=== PATIENT | male | born 1985 | race Two or more races ===

== ENCOUNTER 2024-11-13 10:17 | Emergency (ER) | payer MEDICAID, SELFPAY ==
[2024-11-13 10:18] VITALS: BMI 34.7
[2024-11-13 10:33] VITALS: BP 140/89; PULSE 89; RESP 18; TEMP 37.1; O2SAT 99
--- NOTE | 2024-11-13 10:36 | EDNOTE_ITS ---
<Statement entered by Jayda Gómez MD - 11/13/24 13:55> As co-signing physician, I was present and available for consult prn. I concur with the plan and care as documented by the midlevel provider. ED General RME/HPI General Chief complaint: Dental/Oral/Throat Stated complaint: SORE THROAT, FACIAL SWELLING X 2 DAYS Time Seen by Provider: 11/13/24 10:24 Arrival date/time: 11/13/24 10:17 39-year-old male presents emergency department today complains of dental pain and facial swelling. Patient reports pain when chewing patient worse with difficulty swallowing or breathing Limitations: no limitations Related Data Previous Rx's ?Medication ?Instructions ?Recorded apixaban 5 mg (74 tabs) tablets in 5 mg PO BID #74 tab s 10/02/23 a dose pack (Eliquis DVT-PE Treat 30D Start) doxycycline hyclate 100 mg capsule 100 mg PO QDAY #9 c aps 10/02/23 clindamycin HCl 300 mg capsule 300 mg PO TID 7 days #2 1 caps 11/13/24 ibuprofen 800 mg tablet 800 mg PO TID PRN pain #30 t abs 11/13/24 Allergies Allergy/AdvReac Type Severity Reaction Status Date / Time shrimp Allergy Severe Swelling Verified 11/13/24 10:21 of Lip/Tongue/Throat Review of Systems Review of Systems Systems Reviewed: All systems reviewed, normal except as documented Constitutional Constitutional: Reports system reviewed and no additional complaints, except as documented, Denies fever(s) and Denies headache(s) Eyes Eyes: Reports system reviewed and no additional complaints, except as documented and Denies blurry vision ENT Ears, Nose, Mouth, and Throat: Reports system reviewed and no additional complaints, except as documented, Reports dental pain, Reports facial pain, Denies headache(s), Denies nasal congestion and Denies nasal discharge Cardiovascular Cardiovascular: Reports system reviewed and no additional complaints, except as documented, Denies chest pain and Denies dyspnea Respiratory Respiratory: Reports system reviewed and no additional complaints, except as documented, Denies chest congestion, Denies cough and Denies dyspnea Gastrointestinal Gastrointestinal: Reports system reviewed and no additional complaints, except as documented and Denies abdominal pain Integumentary/Breasts Skin/Breast: Reports system reviewed and no additional complaints, except as documented and Denies rash Neurologic Neurologic: Reports system reviewed and no additional complaints, except as documented, Reports as per HPI and Denies headache(s) Past Medical History Past Medical History NEUROLOGIC: Negative Neurological Disorders CARDIAC: Negative Cardiac Disorders or Congestive Heart Failure RESPIRATORY: Negative Chronic Obstructive Pulmonary Disease (COPD) or Asthma GASTROINTESTINAL: Negative Gastrointestinal Disorders GENITOURINARY: Negative Genitourinary Disorders or Renal Disease MUSCULOSKELETAL: Negative Musculoskeletal Disorders ENDOCRINE: Negative Endocrine Disorders, Diabetes Mellitus Type 1 or Diabetes Mellitus Type 2 HEMATOLOGIC: Negative Blood Disorders PSYCHO/SOCIAL: Positive Recreational Drug Use OTHER HISTORY: Negative Autoimmune Disease, Down Syndrome, Developmental Delay, Shingles or Falls Social History SMOKING STATUS: Current every day smoker SECOND HAND EXPOSURE: No SUBSTANCE USE: does not use ED Exam General Limitations: Present no limitations General appearance: Present alert and in no apparent distress Head Head exam: Present atraumatic Eye Eye exam: Present normal appearance, PERRL and EOMI ENT ENT exam: Present normal exam, normal oropharynx and mucous membranes moist Neck Neck exam: Present normal inspection, full ROM and trachea midline Chest Chest inspection: Present normal inspection and symmetric chest wall rise Respiratory Respiratory exam: Present normal lung sounds bilaterally Cardiovascular Cardiovascular exam: Present regular rate, normal rhythm and normal heart sounds Abdominal Exam Abdominal exam: Present soft and normal bowel sounds Extremities Exam Extremities exam: Present normal inspection and full ROM Back Exam Back exam: Present normal inspection and full ROM Neurological Exam Neurological exam: Present alert, oriented X3 and CN II-XII intact Psychiatric Psychiatric exam: Present normal affect and normal mood Skin Skin exam: Present warm, dry, intact and normal color Course Quality Measures none Vital Signs Vital signs: Vital Signs Temperature 98.7 F 11/13/24 10:33 Pulse Rate 89 11/13/24 10:33 Respiratory Rate 18 11/13/24 10:33 Blood Pressure 140/89 H 11/13/24 10:33 Pulse Oximetry (%) 99 11/13/24 10:33 Oxygen Delivery Method Room Air 11/13/24 10:33 O2 saturation 99% r/a wnl [facility] Patient data External records reviewed:: [facility] previous records Clinical information provided by:: patient Social determinants that could affect healthcare access:: none Patient has the following chronic illnesses:: See history How is presenting disease/condition affected by chronic disease/condition?: uneffected by Evaluation data The following diagnostics were reviewed and interpreted by me:: other (specify) (N/A) Lab and/or radiology exams considered but not ordered:: N/A Interpretation Summary: Reviewed by me Medications Medications considered but not ordered:: Given Medication administrations:: Given Consultations Consultation(s) initiated? (list below): No Diagnosis Differential Diagnosis ED Complaint MDM: Dental abscess, dental pain Most likely diagnosis given after review of the tests above:: Dental pain Admission Indicated Admission indicated?: not indicated Explain why admission is indicated or not indicated:: No criteria Admission Request Was there a request for admission?: No Disposition Plan Disposition Plan: Discharge Discharge Attestation Discharge Attestation: The patient and all family members were given an opportunity to ask questions and understood the discharge instructions. Discharge instructions specifically effects, indications for sooner follow up or return to the emergency department, and the expected course of current diagnosis. Patient condition: Stable Medical Decision Making MDM Narrative MDM Narrative: 39-year-old male presents emergency department today complains of dental pain and facial swelling. Patient reports pain when chewing patient worse with difficulty swallowing or breathing On exam patient well-appearing patient is not appear ill or toxic patient is no significant swelling Patient has poor dentition Patient treated with a course of antibiotics and pain medication Patient struck to follow-up with dentist and for emergent concerns to return immediately Differential Diagnosis Differential Diagnosis: Dental abscess, dental pain Medical Records Medical records reviewed: Yes I reviewed the patient's medical records. Discharge Plan Plan Patient Disposition: HOME (Self Care) Disposition Comment: Stable Prescriptions/Referrals Prescriptions/Med Rec: New clindamycin HCl 300 mg capsule 300 mg PO TID 7 Days Qty: 21 0RF ibuprofen 800 mg tablet 800 mg PO TID PRN (Reason: pain) Qty: 30 0RF No Action Daniel DVT-PE Treat 30D Start 5 mg (74 tabs) tablets,dose pack 5 mg PO BID Qty: 74 0RF doxycycline hyclate 100 mg capsule 100 mg PO QDAY Qty: 9 0RF Problem List Clinical Impression: Pain, dental Patient/Caregiver Discharge Instructions Education Materials: ED Dental Pain Additional Instructions: Please follow up with your primary care doctor in the next 24-48hrs for any worsening symptoms return here immediately Print Language: Greenlandic Stand Alone Forms: Nimo Award Info., Patient Portal Info Letter PA/ROBY Supervising Physician PA/ROBY Supervising Physician: dr gómez
== END 2024-11-13 12:54 | disposition home or self-care (01) ==
PROVIDERS: Emergency Provider Emergency Medicine
DX: K08.89 Other specified disorders of teeth and supporting structures (principal)
CPT/HCPCS: 99281

== ENCOUNTER 2025-02-17 22:25 | Emergency (ER) | payer MEDICAID, SELFPAY ==
[2025-02-17 22:25] VITALS: BMI 32.5
[2025-02-17 22:59] VITALS: BP 151/100; PULSE 93; RESP 20; TEMP 36.9; O2SAT 96
--- NOTE | 2025-02-17 23:00 | EDNOTE_ITS ---
ED Skin Abcess FB-RME/HPI General Chief complaint: Skin/Abscess/Foreign Body Stated complaint: FACE SWELLING Time Seen by Provider: 02/17/25 22:28 Source: patient Arrival date/time: 02/17/25 22:25 This is a case of 39-year-old male with history of cellulitis in the past came in in the emergency room due to lump and pain on the chin with redness and swelling for 2 days due to worsening of the symptoms this patient decided to sought consult here in the emergency room Limitations: no limitations Related Data Previous Rx's ?Medication ?Instructions ?Recorded apixaban 5 mg (74 tabs) tablets in 5 mg PO BID #74 tab s 10/02/23 a dose pack (EliQgiv DVT-PE Treat 30D Start) doxycycline hyclate 100 mg capsule 100 mg PO QDAY #9 c aps 10/02/23 ibuprofen 800 mg tablet 800 mg PO TID PRN pain #30 t abs 11/13/24 clindamycin HCl 300 mg capsule 300 mg PO Q6H 10 days # 40 caps 02/17/25 doxycycline monohydrate 100 mg 100 mg PO BID 10 days # 20 caps 02/17/25 capsule mupirocin 2 % topical ointment 1 applic topical BID #2 2 grams 02/17/25 Allergies Allergy/AdvReac Type Severity Reaction Status Date / Time shrimp Allergy Severe Swelling Verified 11/13/24 10:21 of Lip/Tongue/Throat Review of Systems Review of Systems Systems Reviewed: All systems reviewed, normal except as documented Constitutional Constitutional: Reports system reviewed and no additional complaints, except as documented and Reports as per HPI Cardiovascular Cardiovascular: Reports system reviewed and no additional complaints, except as documented and Reports as per HPI Respiratory Respiratory: Reports system reviewed and no additional complaints, except as documented and Reports as per HPI Gastrointestinal Gastrointestinal: Reports system reviewed and no additional complaints, except as documented and Reports as per HPI Musculoskeletal Musculoskeletal: Reports system reviewed and no additional complaints, except as documented and Reports as per HPI Integumentary/Breasts Skin/Breast: Reports other (Abscess/redness) Neurologic Neurologic: Reports system reviewed and no additional complaints, except as documented and Reports as per HPI Past Medical History Past Medical History NEUROLOGIC: Negative Neurological Disorders CARDIAC: Negative Cardiac Disorders or Congestive Heart Failure RESPIRATORY: Negative Chronic Obstructive Pulmonary Disease (COPD) or Asthma GASTROINTESTINAL: Negative Gastrointestinal Disorders GENITOURINARY: Negative Genitourinary Disorders or Renal Disease MUSCULOSKELETAL: Negative Musculoskeletal Disorders ENDOCRINE: Negative Endocrine Disorders, Diabetes Mellitus Type 1 or Diabetes Mellitus Type 2 HEMATOLOGIC: Negative Blood Disorders PSYCHO/SOCIAL: Positive Recreational Drug Use OTHER HISTORY: Negative Autoimmune Disease, Down Syndrome, Developmental Delay, Shingles or Falls Social History SMOKING STATUS: Current every day smoker SECOND HAND EXPOSURE: No SUBSTANCE USE: does not use ED Exam General Limitations: Present no limitations General appearance: Present alert and in no apparent distress; Absent appears intoxicated Head Head exam: Present atraumatic Eye Eye exam: Present normal appearance, PERRL and EOMI ENT ENT exam: Present normal exam, normal oropharynx, mucous membranes moist, TM's normal bilaterally and other (HEENT exam is normal and unremarkable); Absent mucous membranes dry Neck Neck exam: Present normal inspection, full ROM and trachea midline; Absent tenderness, meningismus, lymphadenopathy or thyromegaly Chest Chest inspection: Present normal inspection and symmetric chest wall rise; Absent tenderness, rash or abscess Respiratory Respiratory exam: Present normal lung sounds bilaterally; Absent respiratory distress, wheezes, stridor, accessory muscle use or prolonged expiratory phase Cardiovascular Cardiovascular exam: Present regular rate, normal rhythm and normal heart sounds; Absent bradycardia, tachycardia, irregular rhythm or systolic murmur Abdominal Exam Abdominal exam: Present soft and normal bowel sounds Extremities Exam Extremities exam: Present normal inspection and full ROM Back Exam Back exam: Present normal inspection and full ROM Neurological Exam Neurological exam: Present alert, oriented X3, CN II-XII intact, normal gait and reflexes normal; Absent motor sensory deficit Psychiatric Psychiatric exam: Present normal affect and normal mood Skin Skin exam: Present warm, dry, intact, normal color and other (Noted a 2 cm lump on the chin moderate tenderness mild swelling and redness with fluctuance nonindurated hard to touch with stuck streak redness on the area of the chin suggestive of cellulitis no discharge) Course Quality Measures none Orders Category Date Time Status Clindamycin Vial [Cleocin vial] Med 02/17/25 23:00 Discontinued 600 mg IM X1 ONE Vital Signs Vital signs: Vital Signs Temperature 98.5 F 02/17/25 22:59 Pulse Rate 93 02/17/25 22:59 Respiratory Rate 20 02/17/25 22:59 Blood Pressure 151/100 H 02/17/25 22:59 Pulse Oximetry (%) 96 02/17/25 22:59 Oxygen Delivery Method Room Air 02/17/25 22:59 Oxygen saturation in room air 96% Skin / Abscess / Foreign Body MDM Narrative MDM Narrative:: This is a case of 39-year-old male with history of cellulitis in the past came in in the emergency room due to lump and pain on the chin with redness and swelling for 2 days due to worsening of the symptoms this patient decided to sought consult here in the emergency room physical examination patient is awake alert oriented not in distress nontoxic looking patient vital signs stable BP stable not tachycardic not tachypneic afebrile and nonhypoxic physical examination showed Noted a 2 cm lump on the chin moderate tenderness mild swelling and redness with fluctuance nonindurated hard to touch with stuck streak redness on the area of the chin suggestive of cellulitis no discharge based on my physical examination and history patient symptoms suggestive of cutaneous abscess on the area of chin with cellulitis at the time of exam there is no indication to perform incision and drainage clindamycin IM given here in the emergency room and patient was discharged with clindamycin and doxycycline patient was advised to return in the emergency room in 2 days for reevaluation and possible I&D and for reevaluation of cellulitis for any worsening symptoms or any emergent concern he will return in the emergency room immediately or call 911 Patient was discharged with comfortable condition walking with stable gait. Patient verbalized no further complains explained diagnosis and answered patient question. Patient is comfortable with the proposed management plan including the need to follow up with his/her primary care physician and any specialist if applicable Discussed patient for any urgent condition or worsening sx, He/She needed to go to emergency room immediately or call 911. Patient acknowledge the responsibility to follow up as instructed and to monitor her/his symptoms. For any persistence of the symptoms for more than 3-5 days return precaution advised. Discussed the result of the test and was given printed discharge instruction Patient data External records reviewed:: [facility] previous records Clinical information provided by:: patient Social determinants that could affect healthcare access:: none Patient has the following chronic illnesses:: None How is presenting disease/condition affected by chronic disease/condition?: no chronic disease Evaluation data The following diagnostics were reviewed and interpreted by me:: other (specify) (None) Lab and/or radiology exams considered but not ordered:: None Interpretation Summary: None Medications / Prescriptions Medications or Prescriptions considered but not ordered:: Given Medication administrations:: Medication Administration History Discontinued Medications Clindamycin Phosphate (Clindamycin Phos Inj 150 Mg/Ml Vial 6 Ml) 600 mg IM X1 ONE Stop: 02/17/25 23:01 Given Consultations Consultation(s) initiated? (list below): No Diagnosis Skin/Abscess Differential Diagnosis: abscess of skin or subcutaneous tissue and cellulitis Most likely diagnosis given after review of the tests above:: Cutaneous abscess chin with cellulitis Admission Indicated Admission indicated?: not indicated Explain why admission is indicated or not indicated:: Not indicated Admission Request Was there a request for admission?: No Admission Attestation Admission request attestation: Not indicated Disposition Plan Disposition Plan: Discharge Discharge Attestation Discharge Attestation: The patient and all family members were given an opportunity to ask questions and understood the discharge instructions. Discharge instructions specifically effects, indications for sooner follow up or return to the emergency department, and the expected course of current diagnosis. Patient condition: Stable Discharge Plan Plan Patient Disposition: HOME (Self Care) Patient condition on transfer: Stable Prescriptions/Referrals Prescriptions/Med Rec: New clindamycin HCl 300 mg capsule 300 mg PO Q6H 10 Days Qty: 40 0RF doxycycline monohydrate 100 mg capsule 100 mg PO BID 10 Days Qty: 20 0RF mupirocin 2 % ointment 1 applic topical BID Qty: 22 0RF No Action ibuprofen 800 mg tablet 800 mg PO TID PRN (Reason: pain) Qty: 30 0RF Eliquis DVT-PE Treat 30D Start 5 mg (74 tabs) tablets,dose pack 5 mg PO BID Qty: 74 0RF doxycycline hyclate 100 mg capsule 100 mg PO QDAY Qty: 9 0RF Problem List Clinical Impression: Abscess of chin, Cellulitis Patient/Caregiver Discharge Instructions Education Materials: ED Abscess Antibiotic ..., ED Cellulitis Additional Instructions: Follow-up with your primary care physician in 2 days for reevaluation return to the emergency room in 2 days for reevaluation of the abscess/cellulitis for possible I&D for any worsening symptoms or any emergent concerns such as fever chills redness swelling discharge from the chin return to the emergency room immediately or call 911 finish and complete the course of antibiotic keep the area clean and dry Print Language: Palestinian Stand Alone Forms: Nimo Award Info., Patient Portal Info Letter PA/INSIDE SALES SUPERVISOR Supervising Physician PA/INSIDE SALES SUPERVISOR Supervising Physician: dr whitaker
[2025-02-17] MEDS: CLINDAMYCIN PHOS INJ 150 MG/ML VIAL 6 ML 600 MG IM (23:20)
== END 2025-02-17 23:25 | disposition home or self-care (01) ==
LOC: SERX 23:14
PROVIDERS: Emergency Provider Emergency Medicine; PCP Family Medicine
DX: L02.01 Cutaneous abscess of face (principal); L03.211 Cellulitis of face
CPT/HCPCS: 96372; 99283; J0736

== ENCOUNTER 2025-05-26 23:19 | Emergency (ER) | payer MEDICAID, SELFPAY ==
[2025-05-26 23:20] VITALS: BMI 30.8
[2025-05-26 23:27] VITALS: BP 155/98; PULSE 84; RESP 18; TEMP 36.8; O2SAT 99
[2025-05-26] MEDS: FAMOTIDINE 20 MG TABLET 40 MG PO (23:40)
[2025-05-26] MEDS: MethylPREDNISolone SOD SUCC 62.5 MG/ML 2ML VIAL 125 MG IM (23:40)
--- NOTE | 2025-05-27 00:11 | PD.EDALLER ---
ED Allergic Reaction RME/HPI General Chief complaint: Allergic Reaction Stated complaint: ALLERGIC REACTION TO SHRIMP Time Seen by Provider: 05/26/25 23:32 Arrival date/time: 05/26/25 23:19 39M with history of drug use presents to ED with 30 min of generalized swelling and itchiness after he accidentally ate some shrimp, which he knows he's allergic to. Limitations: no limitations Related Data Previous Rx's ?Medication ?Instructions ?Recorded apixaban 5 mg (74 tabs) tablets in 5 mg PO BID #74 tabs 10/02/23 a dose pack (DOZ DVT-PE Treat 30D Start) doxycycline hyclate 100 mg capsule 100 mg PO QDAY #9 caps 10/02/23 ibuprofen 800 mg tablet 800 mg PO TID PRN pain #30 tabs 11/13/24 mupirocin 2 % topical ointment 1 applic topical BID #22 grams 02/17/25 prednisone 50 mg tablet 50 mg PO QDAY 4 days #4 tabs 05/27/25 Allergies Allergy/AdvReac Type Severity Reaction Status Date / Time shrimp Allergy Severe Swelling Verified 05/26/25 23:20 of Lip/Tongue/Throat Review of Systems Review of Systems Systems Reviewed: All systems reviewed, normal except as documented Integumentary/Breasts Skin/Breast: Reports as per HPI, Reports pruritus and Reports rash Past Medical History Past Medical History NEUROLOGIC: Negative Neurological Disorders CARDIAC: Negative Cardiac Disorders or Congestive Heart Failure RESPIRATORY: Negative Chronic Obstructive Pulmonary Disease (COPD) or Asthma GASTROINTESTINAL: Negative Gastrointestinal Disorders GENITOURINARY: Negative Genitourinary Disorders or Renal Disease MUSCULOSKELETAL: Negative Musculoskeletal Disorders ENDOCRINE: Negative Endocrine Disorders, Diabetes Mellitus Type 1 or Diabetes Mellitus Type 2 HEMATOLOGIC: Negative Blood Disorders PSYCHO/SOCIAL: Positive Recreational Drug Use OTHER HISTORY: Negative Autoimmune Disease, Down Syndrome, Developmental Delay, Shingles or Falls Social History SMOKING STATUS: Current every day smoker SECOND HAND EXPOSURE: No SUBSTANCE USE: does not use ED Exam General Limitations: Present no limitations General appearance: Present alert and in no apparent distress Head Head exam: Present atraumatic Neck Neck exam: Present normal inspection, full ROM and trachea midline Chest Chest inspection: Present normal inspection and symmetric chest wall rise Neurological Exam Neurological exam: Present alert, oriented X3 and CN II-XII intact Psychiatric Psychiatric exam: Present normal affect and normal mood Skin Skin exam: Present warm, dry, intact, normal color and rash Course Quality Measures none Orders Category Date Time Status DiphenhydrAMINE [Benadryl] Med 05/26/25 23:32 Discontinued 50 mg PO X1 ONE Famotidine [Pepcid] Med 05/26/25 23:32 Discontinued 40 mg PO X1 ONE MethylPREDNISolone.* [SoluMEDROL Inj] Med 05/26/25 23:32 Discontinued 125 mg IM X1 ONE Vital Signs Vital signs: Vital Signs Temperature 98.3 F 05/26/25 23:27 Pulse Rate 84 05/26/25 23:27 Respiratory Rate 18 05/26/25 23:27 Blood Pressure 155/98 H 05/26/25 23:27 Pulse Oximetry (%) 99 05/26/25 23:27 Oxygen Delivery Method Room Air 05/26/25 23: O2 at 99% on RA and WNLs Allergic Reaction MDM Narrative MDM Narrative:: 39M with history of drug use presents to ED with 30 min of generalized swelling and itchiness after he accidentally ate some shrimp, which he knows he's allergic to. Physical exam reveals skin redness and swelling. Normal speech and WOB. Patient is afebrile, calm, and alert. After 1 hour, patient felt and appeared better. Patient does not want to wait for a longer observation periods. Meds and counselor nurses' association given. Patient data External records reviewed:: [facility] previous records Clinical information provided by:: patient Social determinants that could affect healthcare access:: substance use Patient has the following chronic illnesses:: drug use How is presenting disease/condition affected by chronic disease/condition?: uneffected by Evaluation data The following diagnostics were reviewed and interpreted by me:: other (specify) (none) Lab and/or radiology exams considered but not ordered:: not ordered Interpretation Summary: n/a Medications / Prescriptions Medications or Prescriptions considered but not ordered:: ordered Medication administrations:: Medication Administration History Discontinued Medications Diphenhydramine HCl (Diphenhydramine 25 Mg Capsule) 50 mg PO X1 ONE Stop: 05/26/25 23:33 Last Admin: 05/26/25 23:40 Dose: 50 mg Documented By: BD Famotidine (Famotidine 20 Mg Tablet) 40 mg PO X1 ONE Stop: 05/26/25 23:33 Last Admin: 05/26/25 23:40 Dose: 40 mg Documented By: BD Methylprednisolone Sodium Succinate (Methylprednisolone Sod Succ 62.5 Mg/Ml 2ml Vial) 125 mg IM X1 ONE Stop: 05/26/25 23:33 Last Admin: 05/26/25 23:40 Dose: 125 mg Documented By: BD above Consultations Consultation(s) initiated? (list below): No Diagnosis Differential Diagnosis allergic reaction: anaphylaxis, allergic reaction, angioedema, contact dermatitis, adverse reaction to drug, viral enanthem and urticaria Most likely diagnosis given after review of the tests above:: allergic reaction Admission Indicated Admission indicated?: not indicated Admission Request Was there a request for admission?: No Disposition Plan Disposition Plan: Discharge Discharge Attestation Discharge Attestation: The patient and all family members were given an opportunity to ask questions and understood the discharge instructions. Discharge instructions specifically effects, indications for sooner follow up or return to the emergency department, and the expected course of current diagnosis. Patient condition: Stable Discharge Plan Plan Patient Disposition: HOME (Self Care) Discharge Disposition comment: Stable Prescriptions/Referrals Prescriptions/Med Rec: New prednisone 50 mg tablet 50 mg PO QDAY 4 Days Qty: 4 0RF No Action ibuprofen 800 mg tablet 800 mg PO TID PRN (Reason: pain) Qty: 30 0RF Eliquis DVT-PE Treat 30D Start 5 mg (74 tabs) tablets,dose pack 5 mg PO BID Qty: 74 0RF doxycycline hyclate 100 mg capsule 100 mg PO QDAY Qty: 9 0RF mupirocin 2 % ointment 1 applic topical BID Qty: 22 0RF Problem List Clinical Impression: Allergic reaction Patient/Caregiver Discharge Instructions Education Materials: ED Food Allergy Additional Instructions: Please follow-up with PCP within 24-48 hours and return immediately if symptoms worsen. Take OTC antihistamine as needed until symptoms resolve. Finish entire steroid course. Print Language: Slovak Stand Alone Forms: Patient Portal Info Letter PA/SWEET POTATO DISINTEGRATOR Supervising Physician KARMEN/ROBY Supervising Physician: Dr. Spicer
== END 2025-05-27 00:18 | disposition home or self-care (01) ==
LOC: SERX 05-27 00:16
PROVIDERS: Emergency Provider Emergency Medicine
DX: T78.19XA Other adverse food reactions, not elsewhere classified, initial encounter (principal); Z79.01 Long term (current) use of anticoagulants
CPT/HCPCS: 99283; J2919; A9270

== ENCOUNTER 2025-05-28 17:11 | Emergency (ER) | payer MEDICAID, SELFPAY ==
[2025-05-28 17:35] VITALS: BP 150/100; PULSE 100; RESP 18; TEMP 38.8; O2SAT 98; BMI 31.5
--- NOTE | 2025-05-28 17:48 | EKG_ITS ---
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
--- NOTE | 2025-05-28 17:48 | XR_ITS ---
EXAMINATION: PA chest single view TECHNIQUE: Upright PA chest single view Date and time: May 28, 2025, 1750 hours, comparison October 01, 2023 INDICATIONS: Fever coughing 3 days, sepsis alert today FINDINGS: Normal heart size No lobar pneumonia. No pulmonary edema. The osseous structures intact IMPRESSION: No pneumonia identified
[2025-05-28 18:27] LABS: Influenza A Ag Negative; Influenza B Ag Negative
--- NOTE | 2025-05-28 18:50 | PC.NURSE ---
CALLED BY LAB, NO ANSWER
--- NOTE | 2025-05-28 18:56 | PC.NURSE ---
PT CALLED, NO ANSWER X 2.
--- NOTE | 2025-05-28 19:02 | PC.NURSE ---
PT CALLED 3RD TIME, NO ANSWER. BOLA.
--- NOTE | 2025-05-28 22:03 | EDNOTE_ITS ---
ED General RME/HPI General Chief complaint: Fever Stated complaint: FEVER, WOUND LLE, COLD SWEATS Time Seen by Provider: 05/28/25 17:46 Arrival date/time: 05/28/25 17:11 CC: Fever and chills, large wound to his left lower leg. Onset today. Patient was seen here yesterday for a allergic reaction . Patient denies any other new pain. Related Data Previous Rx's ?Medication ?Instructions ?Recorded apixaban 5 mg (74 tabs) tablets in 5 mg PO BID #74 tab s 10/02/23 a dose pack ([employer] DVT-PE Treat 30D Start) doxycycline hyclate 100 mg capsule 100 mg PO QDAY #9 c aps 10/02/23 ibuprofen 800 mg tablet 800 mg PO TID PRN pain #30 t abs 11/13/24 mupirocin 2 % topical ointment 1 applic topical BID #2 2 grams 02/17/25 prednisone 50 mg tablet 50 mg PO QDAY 4 days #4 tabs 05/27/25 Allergies Allergy/AdvReac Type Severity Reaction Status Date / Time shrimp Allergy Severe Swelling Verified 05/28/25 17:15 of Lip/Tongue/Throat Review of Systems Review of Systems Narrative Review of Systems: GEN: + fever, + chills, no weight loss EYES: No discharge, no visual changes, no pain HEENT: No ear pain, no congestion, no sore throat PULM: No shortness of breath, no cough, no congestion CV: No chest pain, no dyspnea on exertion, no palpitations GI: No nausea, no vomiting, no diarrhea, no pain, no constipation : No frequency, no urgency, no dysuria MUSC/SKEL: No joint pain, no back pain SKIN: No rash PSYCH: No hallucinations, no depression HEME/LYMPH: No easy bleeding or bruising tendencies NEURO: No weakness, no headache Past Medical History Past Medical History NEUROLOGIC: Negative Neurological Disorders CARDIAC: Negative Cardiac Disorders or Congestive Heart Failure RESPIRATORY: Negative Chronic Obstructive Pulmonary Disease (COPD) or Asthma GASTROINTESTINAL: Negative Gastrointestinal Disorders GENITOURINARY: Negative Genitourinary Disorders or Renal Disease MUSCULOSKELETAL: Negative Musculoskeletal Disorders ENDOCRINE: Negative Endocrine Disorders, Diabetes Mellitus Type 1 or Diabetes Mellitus Type 2 HEMATOLOGIC: Negative Blood Disorders PSYCHO/SOCIAL: Positive Recreational Drug Use OTHER HISTORY: Negative Autoimmune Disease, Down Syndrome, Developmental Delay, Shingles or Falls Social History SMOKING STATUS: Current every day smoker SECOND HAND EXPOSURE: No SUBSTANCE USE: does not use ED Exam Narrative Physical exam: [General: Anxious but not in any eyes pupils are PERRLA EOMs are intact mouth pink dry membranes uvula is midline swallow symmetrical phonation is normal. Acute distress Head normocephalic HEENT: Within acceptable limits Neck is supple nontender Chest equal chest rise nontender to palpation Respiratory: Clear to auscultation no wheezes crackles or rubs CV: Rate rhythm is regular no murmurs rubs or clicks Abdomen is soft nontender no masses positive bowel sounds all 4 quadrants Back: No CVA tenderness no spinous process tenderness from cervical spine thoracic and lumbar spine Skin: Large open wound to the left lower extremity medially proximal to the malleolus. No surrounding erythema no streaking. Poor healing, eschar but no exudate. Otherwise skin is intact no petechiae rash induration ulceration or crepitus Extremities: Moving all extremity against resistance cap refill less than 2 seconds neurosensory intact Neuro: Awake alert oriented x3 Glascow coma 15 no focal deficits] Course Quality Measures none Orders Category Date Time Status Bedside COVID-19 Antigen Test NOW Care 05/28/25 17:46 Active Sales Analyst STAT Care 05/28/25 17:48 Active Continuous Pulse Oximetry STAT Care 05/28/25 17:48 Active EKG (ED ONLY) *Do not use* NOW Care 05/28/25 17:48 Completed In and Out Catheter X1PRN Care 05/28/25 17:48 Active Insert IV NOW Care 05/28/25 17:48 Active NPO STAT Care 05/28/25 17:48 Active Strict Intake and Output Routine Care 05/28/25 17:48 Ordered EKG (ED Only) Stat Exams 05/28/25 17:48 Draft XR chest 1V SEPSIS PROTOCOL Stat Exams 05/28/25 17:48 Completed Influenza A & B Rapid Panel Stat Lab 05/28/25 17:54 Completed Acetaminophen Tab [Tylenol ES Tab] Med 05/28/25 17:48 Discontinued 1,000 mg PO X1 ONE cefTRIAXone/D5w 1gm IV premix [Rocephin/D5w 1gm IV Med 05/28/25 17:49 Discontinued premix] 1 gm in 50 ml IV X1 Oxygen Delivery NOW RT 05/28/25 17:48 Active Vital Signs Vital signs: Vital Signs Temperature 101.9 F H 05/28/25 17:35 Pulse Rate 100 05/28/25 17:35 Respiratory Rate 18 05/28/25 17:35 Blood Pressure 150/100 H 05/28/25 17:35 Pulse Oximetry (%) 98 05/28/25 17:35 Oxygen Delivery Method Room Air 05/28/25 17:35 Discharge Plan Plan Patient Disposition: Elopement Prescriptions/Referrals Prescriptions/Med Rec: No Action ibuprofen 800 mg tablet 800 mg PO TID PRN (Reason: pain) Qty: 30 0RF Eliquis DVT-PE Treat 30D Start 5 mg (74 tabs) tablets,dose pack 5 mg PO BID Qty: 74 0RF doxycycline hyclate 100 mg capsule 100 mg PO QDAY Qty: 9 0RF mupirocin 2 % ointment 1 applic topical BID Qty: 22 0RF prednisone 50 mg tablet 50 mg PO QDAY 4 Days Qty: 4 0RF Problem List Clinical Impression: Fever Patient/Caregiver Discharge Instructions Education Materials: ED FUO Adult Print Language: Croatian PA/WALLPAPER PRINTER HELPER Supervising Physician PA/WALLPAPER PRINTER HELPER Supervising Physician: Doug Angeles ENP MDM Clinical Information Provided by: patient Medical Records reviewed [facility] Meds/Rx considered, not ordered None Labs/Rad/Tests considered, not ordered None Chronic Illness/Social Conditions which may negatively complicate care or outcome(s)-explain: ETOH/drugs/substance abuse EKG EKG not done Labs Labs: interpreted by [facility] Lab(s) Interpretation(s): Influenza A and B are negative patient eloped after all other lobes were ordered as part of the sepsis protocol. Imaging Imaging interpretation: none Medication Administration(s) none Medication Administration History Discontinued Medications Acetaminophen (Acetaminophen 500 Mg Tablet) 1,000 mg PO X1 ONE Stop: 05/28/25 17:49 Ceftriaxone Sodium/Dextrose (Rocephin/D5w 1gm Iv Premix) 1 gm in 50 mls @ 100 mls/hr IV X1 ONE Stop: 05/28/25 18:18 Diagnosis Differential Diagnosis ED Complaint MDM: Sepsis leg cellulitis abscess
== END 2025-05-28 19:02 | disposition left against medical advice (07) ==
LOC: SERX 19:04
PROVIDERS: Registered Nurse General Practice; Emergency Provider Emergency Medicine
DX: R50.9 Fever, unspecified (principal); Z53.29 Procedure and treatment not carried out because of patient's decision for other reasons
CPT/HCPCS: 71045; 80053; 81001; 83605; 83615; 83690; 83735; 83880; 84100; 84145; 84484; 85025; 85610; 85730; 87040; 87502; 87811; 93005; 99283